=== PATIENT | female | born 1985 | race Caucasian/White ===

== ENCOUNTER 2019-04-06 18:43 | Emergency (ER) | payer OTHER ==
[~2019-04-06] VITALS: Ht 162.6 cm; Wt 135.2 kg
--- NOTE | ~2019-04-06 | EKG ---
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
[2019-04-06 19:20] LABS: URINE BILIRUBIN NEGATIVE (Negative); URINE BLOOD NEGATIVE (Negative); URINE CLARITY CLEAR; URINE COLOR YELLOW; URINE GLUCOSE-RANDOM* NEGATIVE (Negative); URINE KETONES NEGATIVE (Negative); URINE LEUKOCYTES-REFLEX TRACE (Negative); URINE NITRITE-REFLEX NEGATIVE (Negative); URINE PROTEIN (DIPSTICK) NEGATIVE (Negative); URINE UROBILINOGEN 0.2 E.U./dl (0.2-1.0)
[2019-04-06 19:55] LABS: ABSOLUTE NEUTROPHILS 6.1 thou/uL (1.4-8.2); EOSINOPHILS 4.9 % (0.0-3.0); HEMATOCRIT 38.1 % (37.0-47.0); HEMOGLOBIN 12.8 gm/dL (12.0-15.0); LYMPHOCYTES 29.2 % (24.0-44.0); MCH 29.8 pg (26.0-34.0); MCHC 33.7 g/dL (28.0-37.0); MCV 88.2 fL (80.0-100.0); PLATELET COUNT 318 thou/uL (150-400); POLYS 58.9 % (36.0-66.0); RBC 4.32 mil/uL (4.20-5.00); RDW 13.1 % (10.5-14.5); WBC 10.3 thou/uL (4.0-11.0)
[2019-04-06 20:05] LABS: CALCIUM 8.8 mg/dL (8.5-10.1); CREATININE 0.8 mg/dL (0.6-1.0); POTASSIUM 3.9 mmol/L (3.5-5.1)
[2019-04-06 20:11] LABS: ALBUMIN 3.7 g/dL (3.4-5.0); TOTAL BILIRUBIN 0.3 mg/dL (<0.1-1.0); TOTAL PROTEIN 7.7 g/dL (6.4-8.2)
[2019-04-06] MEDS ORDERED: MECLIZINE HCL25 MG PO (20:33)
[2019-04-06 20:34] VITALS: BP 123/80
== END 2019-04-06 20:40 | disposition home or self-care (01) ==
LOC: ER 18:43
PROVIDERS: Physician Assistant
DX: H81.10 Benign paroxysmal vertigo, unspecified ear (principal); J45.909 Unspecified asthma, uncomplicated; Z90.49 Acquired absence of other specified parts of digestive tract; Z88.6 Allergy status to analgesic agent